=== PATIENT | female | born 1990 | race Two or more races ===

== ENCOUNTER 2018-11-01 03:16 | Emergency (ER) | payer OTHER ==
[~2018-11-01] VITALS: Ht 157.5 cm; Wt 59.0 kg
[~2018-11-01 03:16] MED LIST: LINDANE60 M1 TOP; ZYRTEC10 M3 PO
[2018-11-01] MEDS ORDERED: LEVOTHYROXINE25 MCG PO (07:32)
[2018-11-01] MEDS ORDERED: XOPENEX CO1.25 MG/0. IH (07:32)
[2018-11-01] MEDS ORDERED: ZITHROMAX500 MG PO (07:32)
[2018-11-01] MEDS ORDERED: TESSALON PERLE100 M1 PO (07:32)
== END 2018-11-01 07:45 ==
LOC: ER 03:16
DX: J06.9 Acute upper respiratory infection, unspecified (principal); R07.89 Other chest pain

== ENCOUNTER → 2022-06-01 | Emergency (ER) | payer OTHER ==
[~2022-06-01] VITALS: Ht 154.9 cm; Wt 59.0 kg
[~2022-06-01] MED LIST changes: +LEVOTHYROXINE25 MCG PO; +SYNTHROID112 MCG PO; +TESSALON PERLE100 M1 PO; +XOPENEX CO1.25 MG/0. IH; +ZITHROMAX500 MG PO
== END | disposition left against medical advice (07) ==
LOC: ER 19:40
DX: Z53.21 Procedure and treatment not carried out due to patient leaving prior to being seen by health care provider (principal)